=== PATIENT | male | born 1980 | race Caucasian/White ===

== ENCOUNTER 2017-08-22 18:50 | Emergency (ER) | payer SELFPAY ==
[~2017-08-22] VITALS: Ht 185.4 cm; Wt 77.2 kg
[2017-08-22 18:56] VITALS: BP 128/75
[2017-08-22 21:49] VITALS: BP 122/72
== END 2017-08-22 21:49 | disposition home or self-care (01) ==
LOC: MED 18:50
DX: M54.5 Low back pain (principal); F17.210 Nicotine dependence, cigarettes, uncomplicated; F19.90 Other psychoactive substance use, unspecified, uncomplicated
CPT/HCPCS: 72110; 99284